=== PATIENT | female | born 1975 | race Hispanic/Latino ===

== ENCOUNTER → 2019-12-06 | Day surgery (SDC) | payer OTHER ==
[~2019-12-06] MED LIST: CYMBALTA30 MG PO; FENTANYL CITRATE/PF 100MCG/2 ML INJ ONE; FOLIC ACID PO; IRON PO; LEVOTHYROXINE50 MCG PO; MAGNESIUM400 MG PO; MIDAZOLAM HCL 2 MG/2 ML VIAL ONE; NEPHRO-VITE TABL1 EA PO; PROPOFOL IV EMULSION 10 MG/ML 20 ML VIAL ONE; VIT D3 PO
[2019-12-06 14:00] VITALS: BP 120/80
== END | disposition home or self-care (01) ==
LOC: OR 11:11
PROVIDERS: ATTEND Internal Medicine Gastroenterology
DX: K21.0 Gastro-esophageal reflux disease with esophagitis (principal); K64.8 Other hemorrhoids; K64.4 Residual hemorrhoidal skin tags; D64.9 Anemia, unspecified; J21.0 Acute bronchiolitis due to respiratory syncytial virus; K44.9 Diaphragmatic hernia without obstruction or gangrene; K29.70 Gastritis, unspecified, without bleeding; Z01.812 Encounter for preprocedural laboratory examination
CPT/HCPCS: 43239; 45378; 81025; J2250; J2704; J3010